=== PATIENT | female | born 1945 | race Caucasian/White ===

== ENCOUNTER 2018-10-23 07:24 | Emergency (ER) | payer MEDICARE ==
[2018-10-23 07:42] VITALS: BP 153/87
[2018-10-23] MEDS: predniSONE TAB* 20 MG PO ONE (08:16)
[2018-10-23] MEDS: Albuterol/Ipratropium NEB.SOL* Albuterol 2.5 MG/Ipratropium 0.5 MG 3 ML INH ONE (08:18)
--- NOTE | 2018-10-23 08:48 | ED ---
Respiratory - HPI Summary HPI Summary: 73 yr old with runny nose, coughing, wheezing. Onset a couple of days ago. She was exposed to a grandson with similar cough and cold symptoms. The patient has a history of asthmatic bronchitis. She is from [place]. She just completed a cross country trip visiting family and coming to [place]. She denies CP. - History of Current Complaint Chief Complaint: UCRespiratory Stated Complaint: WHEEZY COUGH CONGESTION Time Seen by Provider: 10/23/18 07:47 Pain Intensity: 0 - Allergy/Home Medications Allergies/Adverse Reactions: Allergies Allergy/AdvReac Type Severity Reaction Status Date / Time erythromycin base Allergy Rash And Verified 10/23/18 07:43 Itching cats Allergy Difficulty Uncoded 01/25/14 09:39 Breathing Home Medications: Home Medications Lisinopril 1 tab PO DAILY 10/23/18 [History Confirmed 10/23/18] busPIRone TAB* [Buspar TAB*] 1 tab PO DAILY PRN 10/23/18 [History Confirmed ] raNITIdine HCl [Zantac] 1 tab PO DAILY 10/23/18 [History Confirmed 10/23/18] PMH/Surg Hx/FS Hx/Imm Hx Cardiovascular History: Reports: Hx Hypertension Respiratory History: Reports: Hx Asthma Infectious Disease History: No Infectious Disease History: Denies: Traveled Outside the in Last 30 Days - Family History Known Family History: Positive: Hypertension - Social History Occupation: Retired Lives: With Family Alcohol Use: Occasionally Substance Use Type: Reports: None Smoking Status (MU): Never Smoked Tobacco Review of Systems Constitutional: Negative Positive: Nasal Discharge Positive: Cough All Other Systems Reviewed And Are Negative: Yes Physical Exam Triage Information Reviewed: Yes Vital Signs On Initial Exam: Initial Vitals Temp Pulse Resp BP Pulse Ox 98.9 F 100 20 153/87 96 10/23/18 07:36 10/23/18 07:36 10/23/18 07:36 10/23/18 07:36 10/23/18 07:36 Vital Signs Reviewed: Yes Appearance: Positive: Well-Appearing, No Pain Distress Skin: Positive: Warm, Skin Color Reflects Adequate Perfusion Head/Face: Positive: Normal Head/Face Inspection Eyes: Positive: EOMI, ANUSHKA ENT: Positive: Normal ENT inspection, Pharyngeal erythema, Nasal congestion, TMs normal. Negative: Sinus tenderness Neck: Positive: Nontender Respiratory/Lung Sounds: Positive: Wheezes - bilateral Cardiovascular: Positive: RRR. Negative: Murmur Abdomen Description: Negative: Distended Musculoskeletal: Positive: Strength/ROM Intact Neurological: Positive: Sensory/Motor Intact, Alert, Oriented to Person Place, Time, CN Intact II-III, Normal Gait, Speech Normal Psychiatric: Positive: Normal Diagnostics - Vital Signs Vital Signs Temp Pulse Resp BP Pulse Ox 10/23/18 07:36 98.9 F 100 20 153/87 96 - Laboratory Lab Statement: Any lab studies that have been ordered have been reviewed, and results considered in the medical decision making process. Re-Evaluation - Re-Evaluation First Eval Re-Evaluation Time: 08:54 Change: Improved Comment: Lungs clear after neb. Disposition - Course Course Of Treatment: 73 yr old female with asthmatic bronchitis. Rx prednisone , and she already has a neb. - Diagnoses Provider Diagnoses: Asthmatic bronchitis, Hypertension Discharge - Sign-Out/Discharge Documenting (check all that apply): Patient Departure All imaging exams completed and their final reports reviewed: Yes - Discharge Plan Condition: Good Disposition: HOME Prescriptions: predniSONE TAB* [Deltasone 20 MG TAB*] 40 mg PO DAILY #8 tab Patient Education Materials: Acute Bronchitis (ED), Hypertension (ED) Referrals: Smith Bautista MD [Primary Care Provider] - If Needed - Billing Disposition and Condition Condition: GOOD Disposition: Home
== END 2018-10-23 08:59 | disposition home or self-care (01) ==
LOC: UCCORT 07:24
DX: J45.909 Unspecified asthma, uncomplicated (principal); I10 Essential (primary) hypertension; Z79.899 Other long term (current) drug therapy
CPT/HCPCS: 71046; 99202; A9270-GY; G0463; J7512

== ENCOUNTER 2018-12-16 07:15 | Emergency (ER) | payer MEDICARE ==
[2018-12-16 07:36] VITALS: BP 127/71
--- NOTE | 2018-12-16 07:59 | UC ---
Complaint Female HPI - HPI Summary HPI Summary: dysuria x 4 days pain is 5 out of 10 , no radiation, worse since yesterday better with Azo meds , worse with urination + frequency , urgency , no fever, no chills, no flank pain - History Of Current Complaint Chief Complaint: UCGU Stated Complaint: URINARY COMPLAINT Time Seen by Provider: 12/16/18 07:26 Hx Obtained From: Patient Hx Last Menstrual Period: 2005 Onset/Duration: Gradual Onset, Lasting Days - 4, Still Present, Worse Since - yesterday Timing: Constant Severity Initially: Moderate Severity Currently: Moderate Pain Intensity: 3 Character: Burning, Cramping Aggravating Factor(s): Urination Alleviating Factor(s): Meds Associated Signs And Symptoms: Negative: Fever, Back Pain, Vaginal Bleeding/ Discharge, Vaginal Discharge, Nausea, Vomiting(# Of Episodes =), Genital Swelling, Genital Blisters, Retained Foregin Body (Specify) - Allergies/Home Medications Allergies/Adverse Reactions: Allergies Allergy/AdvReac Type Severity Reaction Status Date / Time erythromycin base Allergy Rash And Verified 12/16/18 07:27 Itching cats Allergy Difficulty Uncoded 12/16/18 07:27 Breathing Home Medications: Home Medications Soy Isofl/Blk Coh/Gr Tea/Yerba [[employer]] 1 cap PO DAILY 12/16/18 [ History Confirmed 12/16/18] PMH/Surg Hx/FS Hx/Imm Hx Cardiovascular History: Hypertension Respiratory History: Asthma - Surgical History Surgical History: None - Family History Known Family History: Positive: Hypertension - Social History Alcohol Use: Occasionally Substance Use Type: None Smoking Status (MU): Never Smoked Tobacco Review of Systems All Other Systems Reviewed And Are Negative: Yes Constitutional: Positive: Negative. Negative: Fever, Chills, Fatigue Skin: Positive: Negative Eyes: Positive: Negative ENT: Positive: Negative Genitourinary: Positive: Dysuria, Frequency, Urgency. Negative: Vaginal/Penile Burning, Vaginal/Penile Itching Is Patient Immunocompromised?: No Physical Exam Triage Information Reviewed: Yes Appearance: Well-Appearing, No Pain Distress, Well-Nourished Vital Signs: Initial Vital Signs Temp 98.2 F 12/16/18 07:30 Pulse 84 12/16/18 07:30 Resp 18 12/16/18 07:30 BP 127/71 12/16/18 07:30 Pulse Ox 100 12/16/18 07:30 Vital Signs Reviewed: Yes Eye Exam: Normal ENT: Positive: Normal ENT inspection, Hearing grossly normal Neck: Positive: Supple, Nontender, No Lymphadenopathy Respiratory: Positive: Chest non-tender, Lungs clear, Normal breath sounds Cardiovascular: Positive: RRR, No Murmur, Pulses Normal Abdomen Description: Positive: Nontender, No Organomegaly, Soft. Negative: CVA Tenderness (R), CVA Tenderness (L), Distended, Guarding Bowel Sounds: Positive: Present Complaint Female Dx - Differential Dx/Diagnosis Provider Diagnosis: UTI (urinary tract infection) Discharge - Sign-Out/Discharge Documenting (check all that apply): Patient Departure All imaging exams completed and their final reports reviewed: No Studies - Discharge Plan Condition: Stable Disposition: HOME Prescriptions: Sulfamethox/Trimethoprim DS* [Bactrim DS 800/160 TAB*] 1 tab PO BID #14 tab Patient Education Materials: Urinary Tract Infection in Women (ED) Referrals: Smith Bautista MD [Primary Care Provider] - If Needed - Billing Disposition and Condition Condition: STABLE Disposition: Home
== END 2018-12-16 08:03 | disposition home or self-care (01) ==
LOC: UCCORT 07:15
DX: N39.0 Urinary tract infection, site not specified (principal); I10 Essential (primary) hypertension; Z88.1 Allergy status to other antibiotic agents
CPT/HCPCS: 81003; 87077; 87086; 87186; 99212; G0463

== ENCOUNTER 2018-12-25 20:58 | Emergency (ER) | payer MEDICARE ==
[2018-12-25 21:09] VITALS: BP 141/77
--- NOTE | 2018-12-25 21:17 | UC ---
Complaint Female HPI - HPI Summary HPI Summary: Recent treatment of Klebsiella urinary tract infection with bactrim, to which is the infection showed sensitivity. - History Of Current Complaint Chief Complaint: UCGU Stated Complaint: URINARY CONCERN-RECHECK Time Seen by Provider: 12/25/18 21:13 Hx Obtained From: Patient Hx Last Menstrual Period: 2005 Onset/Duration: Gradual Onset, Lasting Days Timing: Intermittent Severity Initially: Moderate Severity Currently: Moderate Pain Intensity: 0 Character: Burning, Cramping Aggravating Factor(s): Urination Alleviating Factor(s): Nothing Associated Signs And Symptoms: Positive: Back Pain - chronic muscular low back pain - Risk Factors Ovarian Torsion Risk Factor: Negative - Allergies/Home Medications Allergies/Adverse Reactions: Allergies Allergy/AdvReac Type Severity Reaction Status Date / Time erythromycin base Allergy Rash And Verified 12/25/18 21:06 Itching cats Allergy Difficulty Uncoded 12/25/18 21:06 Breathing Home Medications: Home Medications Lovastatin (NF) [Mevacor (NF)] 10 mg PO DAILY 12/25/18 [History Confirmed ] PMH/Surg Hx/FS Hx/Imm Hx Previously Healthy: Yes Cardiovascular History: Hypertension Psychological History: Anxiety - Surgical History Surgical History: None - Family History Known Family History: Positive: Hypertension - Social History Occupation: Retired Lives: With Family Alcohol Use: Occasionally Substance Use Type: None Smoking Status (MU): Never Smoked Tobacco Review of Systems All Other Systems Reviewed And Are Negative: Yes Constitutional: Positive: Fatigue Skin: Positive: Negative Eyes: Positive: Negative ENT: Positive: Negative Respiratory: Positive: Negative Cardiovascular: Positive: Negative Gastrointestinal: Positive: Nausea Genitourinary: Positive: Dysuria, Frequency, Urgency Motor: Positive: Negative Neurovascular: Positive: Negative Musculoskeletal: Positive: Negative Neurological: Positive: Negative Psychological: Positive: Negative Is Patient Immunocompromised?: No Physical Exam Triage Information Reviewed: Yes Appearance: Well-Appearing, No Pain Distress Vital Signs: Initial Vital Signs Temp 97.4 F 12/25/18 21:03 Pulse 88 12/25/18 21:03 Resp 18 12/25/18 21:03 BP 141/77 12/25/18 21:03 Pulse Ox 100 12/25/18 21:03 ENT: Positive: Normal ENT inspection Neck: Positive: No Lymphadenopathy Respiratory: Positive: Lungs clear, Normal breath sounds Cardiovascular: Positive: RRR Abdomen Description: Positive: No Organomegaly, Other: - mild suprapubic tenderness.. Negative: CVA Tenderness (R), CVA Tenderness (L) Neurological Exam: Normal Psychological Exam: Normal Diagnostics - Laboratory Lab Results: Urine with 1+ leukocyte esterace. Complaint Female Dx - Course Course Of Treatment: Urinary tract infection, inadequate response to bactrim. - Differential Dx/Diagnosis Differential Diagnosis/HQI/PQRI: Urinary Tract Infection Provider Diagnosis: UTI (urinary tract infection) Discharge - Sign-Out/Discharge Documenting (check all that apply): Patient Departure All imaging exams completed and their final reports reviewed: No Studies - Discharge Plan Condition: Stable Disposition: HOME Prescriptions: cephALEXin [Keflex] 500 mg PO BID #14 capsule Patient Education Materials: Urinary Tract Infection in Women (ED) Referrals: Smith Bautista MD [Primary Care Provider] - Additional Instructions: Begin cephalexin 500mg twice daily for Klebsiella urinary tract infection which appears to be resistant to bactrim. Repeat culture has been sent and should be reported by the morning of the . - Billing Disposition and Condition Condition: STABLE Disposition: Home
[2018-12-25] MEDS ORDERED: Cephalexin CAP* 500 MG PO ONE (21:25)
== END 2018-12-25 21:35 | disposition home or self-care (01) ==
LOC: UCCORT 20:58
DX: N39.0 Urinary tract infection, site not specified (principal); Z88.1 Allergy status to other antibiotic agents; I10 Essential (primary) hypertension
CPT/HCPCS: 81003; 87086; 99212; A9270-GY; G0463

== ENCOUNTER 2019-02-05 10:27 | Emergency (ER) | payer MEDICARE ==
[2019-02-05 11:07] VITALS: BP 131/81
--- NOTE | 2019-02-05 11:17 | UC ---
Complaint Female HPI - HPI Summary HPI Summary: 3 day history of bladder pressure and irritability, with frequency and sense of incomplete emptying. Had a Klebsiella UTI in December, treated with bactrim followed by cephalexin, although second culture was negative. 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 Leaving for trip to [facility] on the weekend. - History Of Current Complaint Chief Complaint: UCGU Stated Complaint: URINARY CONCERN Time Seen by Provider: 02/05/19 11:14 Hx Obtained From: Patient Hx Last Menstrual Period: 2005 Onset/Duration: Gradual Onset, Lasting Days - 3 Timing: Intermittent, Lasting Minutes Severity Initially: Mild Severity Currently: Mild Pain Intensity: 0 Character: Cramping Aggravating Factor(s): Urination Alleviating Factor(s): Nothing Associated Signs And Symptoms: Positive: Negative. Negative: Fever, Back Pain, Vaginal Bleeding/Discharge - Allergies/Home Medications Allergies/Adverse Reactions: Allergies Allergy/AdvReac Type Severity Reaction Status Date / Time erythromycin base Allergy Rash And Verified 12/25/18 21:06 Itching cats Allergy Unknown Difficulty Uncoded 02/05/19 10:58 Breathing PMH/Surg Hx/FS Hx/Imm Hx Cardiovascular History: Hypertension Respiratory History: Asthma - Surgical History Surgical History: None - Family History Known Family History: Positive: Hypertension - Social History Occupation: Retired Alcohol Use: Occasionally Substance Use Type: None Smoking Status (MU): Never Smoked Tobacco Review of Systems All Other Systems Reviewed And Are Negative: Yes Constitutional: Positive: Negative ENT: Positive: Other - nasal drainage Respiratory: Positive: Cough Motor: Positive: Negative Neurovascular: Positive: Negative Musculoskeletal: Positive: Negative Neurological: Positive: Negative Psychological: Positive: Negative Is Patient Immunocompromised?: No Physical Exam Triage Information Reviewed: Yes Appearance: Well-Appearing, No Pain Distress Vital Signs: Initial Vital Signs Temp 98.3 F 02/05/19 11:00 Pulse 76 02/05/19 11:00 Resp 16 02/05/19 11:00 BP 131/81 02/05/19 11:00 Pulse Ox 98 02/05/19 11:00 Eyes: Positive: Conjunctiva Clear ENT: Positive: Pharynx normal Neck: Positive: Supple, Nontender, No Lymphadenopathy Respiratory: Positive: Normal breath sounds, Wheezing - with expiration Cardiovascular: Positive: RRR, No Murmur Abdomen Description: Positive: Nontender, No Organomegaly, Soft. Negative: CVA Tenderness (R), CVA Tenderness (L) Psychological Exam: Normal Skin Exam: Normal Diagnostics - Laboratory Lab Results: UA esterace positive Complaint Female Dx - Course Course Of Treatment: cephalexin for treatment of suspected UTI. Anticipate that this will give some respiratory coverage as well as she has increased cogh and wheeze. - Differential Dx/Diagnosis Differential Diagnosis/HQI/PQRI: Urinary Tract Infection, Other - asthma Provider Diagnosis: UTI (urinary tract infection) Discharge ED - Sign-Out/Discharge Documenting (check all that apply): Patient Departure All imaging exams completed and their final reports reviewed: No Studies - Discharge Plan Condition: Stable Disposition: HOME Prescriptions: cephALEXin [Keflex] 500 mg PO BID #14 capsule Patient Education Materials: Urinary Tract Infection in Women (ED) Referrals: Smith Bautista MD [Primary Care Provider] - Additional Instructions: Begin cephalexin for treatment of urinary infection. Ensure continued high intake of water. Urine culture will be sent and you will be notified if a change of antibiotic is needed. Continue use of albuterol and loratidine for treatment of asthma. - Billing Disposition and Condition Condition: STABLE Disposition: Home
== END 2019-02-05 11:39 | disposition home or self-care (01) ==
LOC: UCCORT 10:27
DX: N39.0 Urinary tract infection, site not specified (principal); Z88.1 Allergy status to other antibiotic agents; I10 Essential (primary) hypertension
CPT/HCPCS: 81003; 87086; 99212; G0463